=== PATIENT | male | born 1970 | race Caucasian/White ===

== ENCOUNTER 2017-02-05 10:03 | Inpatient (IN) | payer OTHER ==
[~2017-02-05] VITALS: Ht 172.7 cm; Wt 89.2 kg
[2017-02-05] VITALS (12 sets, daily range): BP systolic 108–142; BP diastolic 67–96; PULSE 58–68; RESP 17–20; TEMP 96.8–98.8; O2SAT 95–100
[~2017-02-05 10:03] MED LIST: MECL-62 PO; ZOFR4TAB3 SL
--- NOTE | 2017-02-05 10:28 | PD ---
HPI Chief Complaint: Chest Pain Time Seen by Provider: 10:15 Travel History International Travel<30 days: No Contact w/Intl Traveler<30days: No Traveled to known affect area: No History of Present Illness HPI 46-year-old male with history of HTN, HLD, CAD with previous stent to the LAD in 2013, tobacco abuse here with complaint of chest pain. Patient states that for the last now 5 days he has been having a left-sided pain in the chest that feels like "gas". He describes a burping sensation and pressure buildup. States that this feels very similar to when he had his WV in 2013 requiring stent placement. He has been trying [id number] antacids without much improvement of his symptoms prompting ER visit. No associated shortness of breath, palpitations. Pain is mild at this time. 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 Alonzo. [facility] Past Medical History Hx Anticoagulant Therapy: Yes (patient is on Plavix and aspirin) Anxiety: Yes Cardiovascular Problems: Yes (history of WV) High Cholesterol: Yes GERD: Yes Headaches: No Hypertension: Yes Immunizations Current: Yes Myocardial Infarction: Yes Past Surgical History Abdominal Surgery: Yes (R INGUINAL) Social History Alcohol Use: No Tobacco Use: Yes (2 PPD) Substance Use: No Allergies-Medications (Allergen,Severity, Reaction): Coded Allergies: No Known Allergies (Unverified , 02/05/17) Reported Meds & Prescriptions Reported Meds & Active Scripts Active Reported Aspirin 81 Mg Tabdr 81 Mg PO DAILY Plavix (Clopidogrel Bisulfate) 75 Mg Tab 75 Mg PO HS Citalopram (Citalopram Hydrobromide) 20 Mg Tab 20 Mg PO HS Zetia (Ezetimibe) 10 Mg Tab 10 Mg PO HS Review of Systems Except as stated in HPI: all other systems reviewed are Neg Physical Exam Narrative GENERAL: Middle-aged male in no acute distress SKIN: Focused skin assessment warm/dry. HEAD: Normocephalic. EYES: No scleral icterus. No injection or drainage. ENT: Mucous membranes pink and moist. NECK: Supple CARDIOVASCULAR: Regular rate and rhythm. No murmur appreciated. RESPIRATORY: No accessory muscle use. Clear to auscultation. Breath sounds equal bilaterally. GASTROINTESTINAL: Abdomen soft, non-tender, nondistended. Obese MUSCULOSKELETAL: No obvious deformities. No edema. NEUROLOGICAL: Awake and alert. Normal speech. PSYCHIATRIC: Appropriate mood and affect; insight and judgment normal. Data Data Last Documented VS Vital Signs Date Time Temp Pulse Resp B/P Pulse Ox O2 Delivery O2 Flow Rate FiO2 02/05/17 10:48 58 18 108/67 98 Room Air 02/05/17 10:05 98.8 Orders Electrocardiogram (02/05/17 ) Complete Blood Count With Diff (02/05/17 10:20) Comprehensive Metabolic Panel (02/05/17 10:20) Magnesium (Mg) (02/05/17 10:20) Prothrombin Time / Inr (Pt) (02/05/17 10:20) Act Partial Throm Time (Ptt) (02/05/17 10:20) Troponin I (02/05/17 10:20) Lipase (02/05/17 10:20) Chest, Single Ap (02/05/17 10:20) Ecg Monitoring (02/05/17 10:20) Iv Access Insert/Monitor (02/05/17 10:20) Oximetry (02/05/17 10:20) Aspirin Chew (Aspirin Chew) (02/05/17 10:30) Sodium Chloride 0.9% Flush (Ns Flush) (02/05/17 10:30) Nitroglycerin Sl (Nitrostat Sl) (02/05/17 10:30) Al-Mag Hy-Si 40-40-4 Mg/Ml Liq (Mag-Al P (02/05/17 10:30) Lidocaine 2% Viscous (Xylocaine 2% Visco (02/05/17 10:30) Heparin Infusion COLE.Q1H (02/05/17 11:45) Heparin Inj (Heparin Inj) (02/05/17 11:45) Heparin Inj (Heparin Inj) (02/05/17 17:45) Heparin Inj (Heparin Inj) (02/05/17 17:45) Heparin-D5w Inj (Heparin-D5w Inj) (02/05/17 11:45) Cbc No Diff, Includes Plts (02/08/17 06:00) Act Partial Throm Time (Ptt) (02/05/17 18:45) Occult Blood (Hemoccult) Stool (02/05/17 11:45) Labs Laboratory Tests Test 02/05/17 10:45 White Blood Count 7.9 TH/MM3 Red Blood Count 4.98 MIL/MM3 Hemoglobin 15.3 GM/DL Hematocrit 42.5 % Mean Corpuscular Volume 85.2 FL Mean Corpuscular Hemoglobin 30.7 PG Mean Corpuscular Hemoglobin 36.0 % Concent Red Cell Distribution Width 12.8 % Platelet Count 205 TH/MM3 Mean Platelet Volume 8.4 FL Neutrophils (%) (Auto) 66.7 % Lymphocytes (%) (Auto) 23.2 % Monocytes (%) (Auto) 7.2 % Eosinophils (%) (Auto) 2.4 % Basophils (%) (Auto) 0.5 % Neutrophils # (Auto) 5.3 TH/MM3 Lymphocytes # (Auto) 1.8 TH/MM3 Monocytes # (Auto) 0.6 TH/MM3 Eosinophils # (Auto) 0.2 TH/MM3 Basophils # (Auto) 0.0 TH/MM3 CBC Comment AUTO DIFF Prothrombin Time 10.5 SEC Prothromb Time International 1.0 RATIO Ratio Activated Partial 26.6 SEC Thromboplast Time Sodium Level 140 MEQ/L Potassium Level 4.0 MEQ/L Chloride Level 104 MEQ/L Carbon Dioxide Level 28.4 MEQ/L Anion Gap 8 MEQ/L Blood Urea Nitrogen 9 MG/DL Creatinine 0.90 MG/DL Estimat Glomerular Filtration 91 ML/MIN Rate Random Glucose 90 MG/DL Calcium Level 9.2 MG/DL Magnesium Level 1.9 MG/DL Total Bilirubin 0.9 MG/DL Aspartate Amino Transf 41 U/L (AST/SGOT) Alanine Aminotransferase 71 U/L (ALT/SGPT) Alkaline Phosphatase 64 U/L Troponin I 1.82 NG/ML Total Protein 6.7 GM/DL Albumin 3.9 GM/DL Lipase 150 U/L [facility] Medical Decision Making Medical Screen Exam Complete: Yes Emergency Medical Condition: Yes Medical Record Reviewed: Yes Differential Diagnosis 46-year-old male with history of HTN, HLD, CAD with previous stent to the LAD in 2013, tobacco abuse here with complaint of chest pain. Differential includes ACS, GERD, peptic ulcer disease, pancreatitis, hepatobiliary pathology , atypical chest pain and less likely PE or dissection. Narrative Course Patient placed on monitor, IV established and blood obtained. A twelve-lead EKG shows sinus rhythm with Q waves in the inferior leads 3, aVF and biphasic T- wave in lead 3. This is similar to patient's previous EKG. No acute ST abnormalities, normal intervals. Patient was given aspirin, nitroglycerin and GI cocktail. Portable chest x-ray obtained that by my read shows no acute abnormalities. CBC, CMP, lipase, magnesium, coags, troponin notable for troponin 1.82. Patient states that as soon as he got the nitroglycerin his symptoms improved. He is pain-free at this time. He was given nitro paste, beta joanne, heparin and will be admitted for cardiac management. Cardiology consulted while in ED. Critical Care Narrative Aggregate critical care time was 45 minutes. Time to perform other separately billable procedures was not included in the critical care time. My time did not include minutes spent treating any other patients simultaneously or on activities that did not directly contribute to the patient's treatment. The services I provided to this patient were to treat and/or prevent clinically significant deterioration that could result in: Cardiopulmonary decompensation, , disability I provided critical care services requiring my management, as noted below: Chart data review, documentation time, medication orders and management, vital sign assessments/reviewing monitor data, ordering and reviewing lab tests, ordering and interpreting/reviewing x-rays and diagnostic studies, care of the patient and discussion of the patient with the admitting physicians.are Diagnosis Primary Impression: Non-ST elevation WV (NSTEMI) Additional Impression: Chest pain Qualified Code: I20.9 - Chest pain due to myocardial ischemia, unspecified ischemic chest pain type Admitting Information Admitting Physician Requests: it Chelo Regalado MD Feb 05, 2017 10:28
[2017-02-05] MEDS: NITROGLYCERIN 0.4 MG SL 25 TABS/BTL SL SCH ×4 (10:29→10:40)
[2017-02-05] MEDS ORDERED: ALUMINUM/MAGNESIUM/SIMETH 30 ML CUP PO ONE (10:30)
[2017-02-05] MEDS ORDERED: LIDOCAINE VISCOUS 2% SOLN 15 ML UDC PO ONE (10:30)
[2017-02-05] MEDS ORDERED: ASPIRIN 81 MG CHEW TAB PO ONE (10:30)
[2017-02-05] MEDS ORDERED: SODIUM CHLORIDE 0.9% FLUSH 10 ML FLUSH IVF PRN (10:30)
[2017-02-05] MEDS ORDERED: CITA20TA4 PO (10:42)
[2017-02-05] MEDS ORDERED: ZETI10TA5 PO (10:42)
[2017-02-05] MEDS ORDERED: PLAV75TA29 PO (10:45)
[2017-02-05] MEDS ORDERED: ASPI1TAB69 PO (10:45)
[2017-02-05 11:00] LABS: AUTOMATED NEUTROPHIL # 5.3 TH/MM3 (1.8-7.7); BASOPHIL % 0.5 % (0.0-2.0); EOSINOPHIL # 0.2 TH/MM3 (0-0.4); EOSINOPHIL % 2.4 % (0.0-4.0); HEMATOCRIT 42.5 % (39.0-51.0); LYMPH % 23.2 % (9.0-44.0); LYMPHOCYTE # 1.8 TH/MM3 (1.0-4.8); MEAN CELL VOLUME 85.2 FL (80.0-100.0); MEAN CORPUSCULAR HEMOGLOBIN 30.7 PG (27.0-34.0); MONO % 7.2 % (0.0-8.0); NEUT % 66.7 % (16.0-70.0); PLATELET COUNT 205 TH/MM3 (150-450); RED BLOOD COUNT 4.98 MIL/MM3 (4.50-5.90); RED CELL DISTRIBUTION WIDTH 12.8 % (11.6-17.2); WHITE BLOOD COUNT 7.9 TH/MM3 (4.0-11.0)
[2017-02-05 11:03] LABS: HEMO FLAGS AUTO DIFF
--- NOTE | 2017-02-05 11:03 | RADRPT ---
EXAM DATE/TIME: 02/05/2017 10:46 [facility] COMPARISON: CHEST SINGLE AP, September 22, 2013, 16:31. INDICATIONS : Chest pain at arrival MEDICAL HISTORY : Myocardial infarction. SURGICAL HISTORY : Coronary artery stent. ENCOUNTER: Initial ACUITY: 1 day PAIN SCORE: 0/10 LOCATION: Bilateral chest FINDINGS: A single view of the chest demonstrates the lungs to be symmetrically aerated without evidence of mas s, infiltrate or effusion. The cardiomediastinal contours are unremarkable. Osseous structures are intact. CONCLUSION: Normal examination. Sujit Aguiar MD on February 05, 2017 at 11:02 Board Certified Radiologist. This report was verified electronically.
[2017-02-05 11:15] LABS: ALT (GPT) 71 U/L (12-78); ANION GAP 8 MEQ/L (5-15); AST (GOT) 41 U/L (15-37); BICARBONATE 28.4 MEQ/L (21.0-32.0); BLOOD UREA NITROGEN 9 MG/DL (7-18); CHLORIDE 104 MEQ/L (98-107); GLOMERULAR FILTRATION RATE 91 ML/MIN (>89); MAGNESIUM 1.9 MG/DL (1.5-2.5); SODIUM (NA) 140 MEQ/L (136-145)
[2017-02-05 11:19] LABS: ALKALINE PHOSPHATASE 64 U/L (45-117); APTT (PATIENT) 26.6 SEC (24.3-30.1); PROTHROMBIN TIME - PATIENT 10.5 SEC (9.8-11.6); TOTAL BILIRUBIN ADULT 0.9 MG/DL (0.2-1.0)
[2017-02-05] MEDS ORDERED: HEPARIN-D5W INJ 250 ML IV SCH (11:45)
[2017-02-05] MEDS ORDERED: HEPARIN SODIUM - IV 10,000 UNITS/10 ML VIAL IV ONE (11:45)
[2017-02-05] MEDS ORDERED: NITROGLYCERIN 2% OINT 1 GM PACKET TOPICAL ONE (12:00)
[2017-02-05] MEDS ORDERED: METOPROLOL TARTRATE 25 MG TAB PO ONE (12:00)
--- NOTE | 2017-02-05 12:25 | EKG ---
Date Performed: 02/05/2017 Time Performed: 10:15:07 PTAGE: 46 years EKG: Sinus rhythm INFERIOR MYOCARDIAL INFARCTION ABNORMAL ECG PREVIOUS TRACING : 10/13/2016 00.09 DOCTOR: Jeffy Guallpa Interpretating Date/Time 02/05/2017 12:23:54
[2017-02-05 12:28] LABS: PLATELET ESTIMATE SMEAR NORMAL (NORMAL); PLATELET MORPHOLOGY NORMAL (NORMAL); SCAN/DIFF AUTO DIFF CONFIRMED
[2017-02-05] MEDS ORDERED: NALOXONE HCL 0.4 MG/ML AMP IV PRN (12:45)
[2017-02-05] MEDS ORDERED: SODIUM CHLORIDE 0.9% FLUSH 10 ML FLUSH IV FLUSH PRN (12:45)
[2017-02-05] MEDS ORDERED: ONDANSETRON HCL 4 MG/2 ML VIAL IVP PRN (12:45)
[2017-02-05] MEDS: PANTOPRAZOLE SOD 40 MG DELAYED RELEASE TAB PO SCH (13:28)
--- NOTE | 2017-02-05 14:00 | MH ---
cc: LINSEY BARRON DATE OF ADMISSION: 02/05/2017 DATE OF : 1970 CHIEF COMPLAINT Chest pain. HISTORY OF PRESENT ILLNESS This is a pleasant 46-year-old white male who has a history of coronary artery disease and previous stents in 2012. The patient was working this past week and weekend and under his usual events when he started noticing a epigastric type pressure sensation in his mid chest. He describes it as a gas or bloating sensation, no radiation, the patient denies any shortness of breath, no nausea, no vomiting, no diarrhea. No constipation. The patient did work long hours this past weekend and states that when he wound burp the pain would ease for a period of time. He actually had to stop driving at one particular event because the chest pain became very intense. The patient is a chronic cigarette user and is currently on aspirin and Plavix. The patient has been taking some over the counter antacids to assist with his pain but has not had much relief. The patient is alert, oriented, and his mother is at his side. He is a good historian. PAST MEDICAL HISTORY: 1. Includes; Anxiety disorder. 2. Gastroesophageal reflux disease. 3. Hyperlipidemia. 4. Hypertension. 5. Previous myocardial infarction. PAST SURGICAL HISTORY: 1. Cardiac stents 2. Right inguinal hernia repair. ALLERGIES No known MEDICATIONS: medications reported; 1. Aspirin 2. Plavix 3. Citalopram 4. Zetia. SOCIAL HISTORY He is , lives alone, approximately two pack a day smoker. He has quit a couple of times for approximately 6 months but for the most part has been smoking since his teenage years. No alcohol abuse, no illicit drug abuse. FAMILY HISTORY Positive for hypertension, diabetes, stroke and heart disease. REVIEW OF SYSTEMS Review of systems of 12 point review was done positives noted are his chest pain, epigastric pain. Bloating, gas with bloating. positive for cigarette abuse, other systems are negative or unremarkable. PHYSICAL EXAMINATION: VITAL SIGNS: Temperature is 98, pulse 58, respirations 17-28, blood pressure 113/70 when he first came in the ER blood pressure was 142/96. O2 sat was 100. The patient is currently on room air. IN GENERAL: Well-nourished white male looks to be his stated age resting on a stretcher. Eating some lunch, he is alert and oriented. HEAD, EYES, EARS, NOSE, AND THROAT: Atraumatic, normocephalic. Pupils equal, round, reactive to light and accommodation, the mucous membranes were moist. He has no scleral icterus. CARDIOVASCULAR SYSTEM: S1-S2, no murmurs, rubs gallops heard. There is n edema. His pulses were intact. RESPIRATORY: Essentially clear anteriorly and posterior with no wheezes, rales or rhonchi. He does have some generalized diminished breath sounds throughout. ABDOMEN: The abdomen round, soft, nontender, nondistended. Active bowel sounds in all four quads. MUSCULOSKELETAL: He moves all extremities with purpose. He has equal hand chart calculator and he can overcome resistance in his lower extremities. He has no cyanosis. NEUROLOGIC: Neurologically he is alert, oriented and good historian. Speech is clear. SKIN: [place], warm and dry. Turgor is. DIAGNOSTIC DATA Sodium 140, potassium 4, chloride 104, carbon dioxide 28.4, anion gap 8, blood urea nitrogen 9, creatinine 0.9. Random glucose 90, calcium 9.2. Magnesium 1.9, bilirubin 0.9, aspartate aminotransferase 41, ALT 74 and alkaline phosphatase 64, troponin 1.82, total protein 6.7, albumin 3.9, lipase 150. WBC count 7.9, RBC 4.18 goes and 15.4, hematocrit 42.5, platelet count 205. His differential is normal. PT INR is 1. RADIOLOGIC: Imaging chest x-ray normal examination. ASSESSMENT AND PLAN: 1. Chest pain, non-STEMI. 2. Vertigo without syncope. 3. Tobacco abuse. 4. Gastroesophageal reflux disease. 5. Anxiety disorder. PLAN: Our plan is to admit inpatient status; the patient arrived at the emergency room received an EKG and lab work, was placed on telemetry, was given IV access and monitored for he is acute cardiac event. The patient was given Heparin IV and was placed on a heparin drip. We will maintain that. The patient was given Metoprolol 12.5 mg p.o. one time. Nitroglycerin was placed on his chest. Cardiology was consulted for their expert opinion, he has seen cardiology and their plan is to do a cardiac catheterization some time in the morning. The patient will be on heart healthy will monitor for a knee further pain, this has been explained to the patient and his mother and that he needs to call for any acute chest pain. The patient was educated on no smoking. The patient is full code, full aggressive care. We will follow. We will also place the patient on peptic ulcer disease prophylaxis with Protonix and reconcile any medications needed for now. Saray Barron MD DICTATED BY: NOEMI Jacobsen /1:14 PM /1:40 PM
[2017-02-05] MEDS ORDERED: AMOX500C PO (15:59)
[2017-02-05] MEDS ORDERED: ALPR0.5T3 PO (15:59)
[2017-02-05] MEDS ORDERED: CETI10 PO (15:59)
[2017-02-05] MEDS ORDERED: LISI10TA3 PO (15:59)
[2017-02-05] MEDS ORDERED: NITROGLYCERIN 0.4 MG SL 25 TABS/BTL SL PRN (17:15)
[2017-02-05] MEDS ORDERED: HEPARIN SODIUM - IV 10,000 UNITS/10 ML VIAL IV PRN ×2 (17:45)
[2017-02-05 18:40] LABS: APTT (PATIENT) 30.7 SEC (24.3-30.1)
[2017-02-05] MEDS ORDERED: IBUPROFEN 800 MG TAB PO PRN (18:45)
[2017-02-05] MEDS: SODIUM CHLORIDE 0.9% FLUSH 10 ML FLUSH IV FLUSH SCH (20:50)
[2017-02-05] MEDS: CITALOPRAM HYDROBROMIDE 20 MG TAB PO SCH (20:51)
[2017-02-05] MEDS: EZETIMIBE 10 MG TAB PO SCH (20:51)
[2017-02-06] VITALS (17 sets, daily range): BP systolic 123–149; BP diastolic 68–97; PULSE 55–75; RESP 18–20; TEMP 98–98.7; O2SAT 95–99
[2017-02-06 07:14] LABS: APTT (PATIENT) 35.6 SEC (24.3-30.1)
[2017-02-06 07:20] LABS: AUTOMATED NEUTROPHIL # 3.8 TH/MM3 (1.8-7.7); BASOPHIL % 0.6 % (0.0-2.0); EOSINOPHIL # 0.2 TH/MM3 (0-0.4); EOSINOPHIL % 3.4 % (0.0-4.0); HEMATOCRIT 42.6 % (39.0-51.0); HEMO FLAGS DIFF FINAL; LYMPH % 33.6 % (9.0-44.0); LYMPHOCYTE # 2.3 TH/MM3 (1.0-4.8); MEAN CELL VOLUME 86.1 FL (80.0-100.0); MEAN CORPUSCULAR HEMOGLOBIN 29.6 PG (27.0-34.0); MEAN CORPUSCULAR HGB CONC 34.4 % (32.0-36.0); MONO % 8.2 % (0.0-8.0); NEUT % 54.2 % (16.0-70.0); PLATELET COUNT 198 TH/MM3 (150-450); RED BLOOD COUNT 4.95 MIL/MM3 (4.50-5.90); RED CELL DISTRIBUTION WIDTH 12.7 % (11.6-17.2); WHITE BLOOD COUNT 6.9 TH/MM3 (4.0-11.0)
[2017-02-06 07:37] LABS: BICARBONATE 29.5 MEQ/L (21.0-32.0); POTASSIUM 3.9 MEQ/L (3.5-5.1)
[2017-02-06] MEDS: ASPIRIN EC 81 MG TABEC PO SCH (09:00)
[2017-02-06] MEDS: SODIUM CHLORIDE 0.9% FLUSH 10 ML FLUSH IV FLUSH SCH ×2 (09:00→20:29)
--- NOTE | 2017-02-06 09:10 | MB ---
cc: EDMUNDO DAVIS M.D. DATE OF CONSULTATION 02/06/2017 DATE OF ADMISSION TO THE EMERGENCY ROOM 02/05/[address] Davis PHYSICIAN REQUESTING CONSULTATION ER physician CHIEF COMPLAINT chest discomfort IMPRESSION 1. [id number] UT 2. Atherosclerotic heart disease status post previous myocardial infarction with stent in the mid LAD. 3. History of hypertension. 4. History of hyperlipidemia. 5. Continued cigarette smoking. RECOMMENDATIONS Cardiac catheterization to be done by Dr. Duarte. SUBJECTIVE Mr. Christopher is a 46-year-old male with atherosclerotic heart disease status post stenting in the LAD by Dr. Byrd in the past. He presented with a non-ST segment elevation UT at that time. He presented to the emergency room yesterday with a several-day history five or six days of burping and substernal chest pressure. He says it was the same type of discomfort he had prior to his myocardial infarction. Electrocardiogram showed nonspecific findings and his troponin was elevated. He was given nitroglycerin with relief of the discomfort. PAST MEDICAL HISTORY Remarkable for: 1. Hypertension 2. Hyperlipidemia 3. History of elevated liver enzymes. PAST SURGICAL HISTORY He has no known surgical procedures. SOCIAL HISTORY He does continue to smoke cigarettes. MEDICATIONS His medicines were: 1. Lisinopril 10 mg daily 2. Zetia 10 mg daily 3. Xanax 0.5 mg two tablets every night at bedtime 4. Plavix 75 mg a day 5. Metoprolol 25 mg daily 6. Citalopram one tablet 20 mg at bedtime 7. Omeprazole 20 mg daily ALLERGIES TO MEDICATIONS No medication allergies. SOCIAL HISTORY He continues to smoke. Does not drink significant amounts of alcohol. He has 60 pack years of cigarette smoking. Occasional alcohol use. REVIEW OF SYSTEMS GI: No hematemesis, melena or bright red blood per rectum. RESPIRATORY: No bronchitis, pleurisy or pneumonia. NEUROLOGIC: No history of stroke, epilepsy, or TIA. EXAMINATION Blood pressure 130/80, heart rate 78. HEAD, EYES, EARS, NOSE, AND THROAT: Pupils are equal. Sclerae clear. NECK: Neck veins are not distended. LUNGS: Clear to auscultation and percussion. CARDIAC: No murmurs or gallops. ABDOMEN: Soft. EXTREMITIES: Right handed, fluent speech, moves all extremities. Gait is intact. He had an exercise treadmill test done in May of last year which was negative and obtained only 80% of his maximal heart rate. IMPRESSION 1. Non ST segment elevation [place]. 2. History of hypertension. 3. History of stenting in the mid LAD. 4. History of hyperlipidemia. RECOMMENDATIONS Dr. Duarte will do a cardiac catheterization later today. MD IBETH Cunha/GUY /8:38 AM /8:54 AM
--- NOTE | 2017-02-06 09:47 | HHI.PR ---
Subjective Remarks Alert, talkative Denies any chest pain Denies any shortness of breath Mother in room Afebrile Awaiting heart catheter today (Norma Dyer) Objective Objective Results - Vital Signs Date Time Temp Pulse Resp B/P Pulse Ox O2 Delivery O2 Flow Rate FiO2 02/06/17 08:46 98.0 55 20 142/90 97 02/06/17 03:50 56 18 127/78 95 02/06/17 00:40 63 02/05/17 23:09 97.8 63 18 126/71 97 02/05/17 21:51 14 02/05/17 20:02 95 02/05/17 19:59 97.8 63 18 110/69 95 02/05/17 16:50 96.8 67 18 120/74 97 02/05/17 16:25 68 02/05/17 14:00 97.8 67 18 120/76 98 Room Air 02/05/17 13:19 98 21 02/05/17 12:19 98.0 58 17 113/70 98 Room Air 02/05/17 10:48 58 18 108/67 98 Room Air 02/05/17 10:34 17 02/05/17 10:22 18 98 Room Air 02/05/17 10:15 86 17 98 Room Air 02/05/17 10:05 98.8 62 20 142/96 100 Room Air I/O 02/05/17 02/05/17 02/05/17 02/06/17 02/06/17 02/06/17 07:00 15:00 23:00 07:00 15:00 23:00 Intake Total 200 ml Output Total 500 ml Balance -300 ml Intake Oral 200 ml Output Urine Total 500 ml # Voids 1 # Bowel Movements 0 (Norma Dyer) Result Diagram: 02/06/17 0634 02/06/17 0634 ROS General: Other (10 point ROS done positives noted for chest pain in the last 24 hours, mild dizziness which is resolved. Other systems negative or unremarkable) Cardiac: Chest Pain (controlled for now but has had some treatment for his chest pain in the past 24 hours) Pulmonary: SOB (none) Neuro/MS: Lightheaded (initially but none now) (Norma Dyer) Physical Exam Physical Exam PHYSICAL EXAMINATION GENERAL: This is a well-developed, well-nourished male who appears to be in no acute distress. He is alert and awake, currently nothing by mouth awaiting heart catheter. HEAD: Normocephalic without any lesion or mass noted. Facial features appear symmetric. OROPHARYNGEAL: Oropharynx without erythema or edema. NECK: Supple. No nuchal rigidity or lymphadenopathy. Trachea midline without deviation. CARDIAC: Regular rhythm, regular rate, S1 and S2 are heard. LUNGS: Clear to auscultation bilaterally. No rhonchi or wheezing noted ABDOMEN: Soft, nontender, no organomegaly or masses. Bowel sounds are heard in all four quadrants. No rebound. No guarding. EXTREMITIES: no edema. Pulses equal bilateral. NEUROLOGICAL: Patient mood and affect appropriate. No focal deficit SKIN:Warm and moist Objective Remarks I'm feeling better this morning. I know I need to quit smoking (Norma Dyer) A/P Assessment and Plan 1. Chest pain, non-STEMI. Cardiac catheter to be done today. Cardiology consult done appreciate their input. Patient is still currently smoking, educated multiple times on the need to quit. States he is going to do it this time. No current chest pain this a.m. but has been treated in the past 24 hours. Maintained on heparin IV drip 2. Vertigo without syncope. None since admission. This was probably secondary to his chest pain and possible small [place]. 3. Tobacco abuse. Educated on quitting. See above 4. Gastroesophageal reflux disease. Pepcid, no acute complaints of reflux 5. Anxiety disorder. Current medical situation, monitor Vital signs reviewed, currently no no acute issues, normal ranges Labs reviewed, stable for now, heparin drip DVT prophylaxis PUD prophylaxis Will follow post catheter and results for patient's course of treatment. Discussed With: Nurse, Family (patient and mom), Other (Dr. Tran, seen on her behalf) (Norma Dyer) Assessment and Plan patient seen and examined complaining about being hungry no chest pain\ Cardiac cath later this afternoon discussed with patient discussed with nursing staff discussed with Norma FRANKLIN (Saray Tran MD) Norma Dyer Feb 06, 2017 09:47 Saray Tran MD Feb 06, 2017 10:09
--- NOTE | 2017-02-06 10:47 | EKG ---
Date Performed: 02/05/2017 Time Performed: 17:15:38 PTAGE: 46 years EKG: Sinus rhythm INFERIOR MYOCARDIAL INFARCTION ABNORMAL ECG PREVIOUS TRACING : 02/05/2017 10.15 DOCTOR: Gary Byrd Interpretating Date/Time 02/06/2017 10:46:06
[2017-02-06] MEDS: SODIUM CHLOR 0.9% 1000 ML INJ 1,000 ML IV SCH (11:27)
[2017-02-06] MEDS ORDERED: ASPIRIN 325 MG TAB PO SCH (11:30)
[2017-02-06] MEDS: AMOXICILLIN (TRIHYDRATE) 500 MG CAP PO SCH ×3 (12:04→18:38)
[2017-02-06] MEDS: PANTOPRAZOLE SOD 40 MG DELAYED RELEASE TAB PO SCH (12:05)
[2017-02-06] MEDS: CETIRIZINE HCL 10 MG TAB PO SCH (12:05)
[2017-02-06] MEDS ORDERED: IOHEXOL 350 MG/ML 100 ML BTL (for Cath Lab) OTHER ONE (12:19)
[2017-02-06] MEDS ORDERED: HEPARIN-NS/PF INJ 500 ML ONE (12:24)
[2017-02-06] MEDS ORDERED: MIDAZOLAM HCL 2 MG/2 ML VIAL ONE ×2 (12:24→12:54)
[2017-02-06] MEDS ORDERED: HEPARIN SODIUM - IV 10,000 UNITS/10 ML VIAL ONE (13:11)
[2017-02-06] MEDS ORDERED: LIDOCAINE/D5W INJ 500 ML ONE (13:13)
[2017-02-06] MEDS ORDERED: DOPamine INJ PREMIX 500 ML ONE (13:15)
[2017-02-06] MEDS ORDERED: ASPIRIN 81 MG CHEW TAB ONE (13:37)
[2017-02-06] MEDS ORDERED: CLOPIDOGREL 300 MG TAB ONE (13:37)
[2017-02-06] MEDS ORDERED: ATROPINE SULFATE 1 MG/10 ML SYRINGE ONE (13:57)
[2017-02-06] MEDS: ACETAMINOPHEN 325 MG TAB PO PRN (20:28)
[2017-02-06] MEDS: CITALOPRAM HYDROBROMIDE 20 MG TAB PO SCH (20:28)
[2017-02-06] MEDS: EZETIMIBE 10 MG TAB PO SCH (20:29)
[2017-02-06 20:31] LABS: AUTOMATED NEUTROPHIL # 6.1 TH/MM3 (1.8-7.7); BASOPHIL # 0.1 TH/MM3 (0-0.2); BASOPHIL % 0.9 % (0.0-2.0); EOSINOPHIL # 0.2 TH/MM3 (0-0.4); EOSINOPHIL % 2.6 % (0.0-4.0); HEMATOCRIT 41.7 % (39.0-51.0); HEMO FLAGS DIFF FINAL; LYMPH % 24.4 % (9.0-44.0); LYMPHOCYTE # 2.3 TH/MM3 (1.0-4.8); MEAN CELL VOLUME 85.8 FL (80.0-100.0); MEAN CORPUSCULAR HEMOGLOBIN 30.6 PG (27.0-34.0); MEAN CORPUSCULAR HGB CONC 35.6 % (32.0-36.0); MONO % 8.4 % (0.0-8.0); NEUT % 63.7 % (16.0-70.0); PLATELET COUNT 226 TH/MM3 (150-450); RED BLOOD COUNT 4.86 MIL/MM3 (4.50-5.90); RED CELL DISTRIBUTION WIDTH 12.7 % (11.6-17.2); WHITE BLOOD COUNT 9.5 TH/MM3 (4.0-11.0)
[2017-02-06 20:46] LABS: APTT (PATIENT) 24.9 SEC (24.3-30.1); INTERNATIONAL NORMALIZED RATIO 0.9 RATIO; PROTHROMBIN TIME - PATIENT 9.6 SEC (9.8-11.6)
[2017-02-06 21:58] LABS: BICARBONATE 25.7 MEQ/L (21.0-32.0); POTASSIUM 3.8 MEQ/L (3.5-5.1)
[2017-02-07] VITALS (25 sets, daily range): BP systolic 133–153; BP diastolic 83–98; PULSE 54–78; RESP 18–20; TEMP 98.3–99.2; O2SAT 93–99
[2017-02-07] MEDS: ACETAMINOPHEN 325 MG TAB PO PRN (04:38)
--- NOTE | 2017-02-07 09:22 | HHI.PR ---
Subjective Subjective Remarks No chest pain Or shortness of breath No dizziness Has been eating well Asking when he is going home Review of Systems Constitutional Constitutional Remarks 12 point review of systems completed, negative except as noted above Vitals/Results Intake & Output 02/06/17 02/06/17 02/07/17 15:00 23:00 07:00 Intake Total 1450 ml 720 ml Output Total 550 ml 1400 ml Balance 900 ml -680 ml Intake Oral 950 ml 720 ml IV Total 500 ml Output Urine Total 550 ml 1400 ml Vital Signs Vital Signs Date Time Temp Pulse Resp B/P Pulse Ox O2 Delivery O2 Flow Rate FiO2 02/07/17 08:00 68 02/07/17 07:00 99.2 57 20 153/97 95 02/07/17 07:00 60 02/07/17 05:00 54 02/07/17 04:00 54 02/07/17 03:30 98.3 60 18 139/91 98 02/07/17 03:00 54 02/07/17 02:00 54 02/07/17 01:00 56 02/07/17 00:00 58 02/06/17 23:08 98.0 72 18 126/70 98 02/06/17 23:01 96 21 02/06/17 23:00 66 02/06/17 22:00 66 02/06/17 21:00 70 02/06/17 20:00 68 02/06/17 19:20 98.0 70 18 123/68 99 02/06/17 19:00 70 02/06/17 18:07 66 02/06/17 17:09 62 02/06/17 16:17 75 02/06/17 15:28 98.1 65 18 142/94 97 02/06/17 15:11 65 02/06/17 11:49 98.7 69 20 149/97 96 CBC/BMP: 02/06/17201402/06/172014 Lab Results Laboratory Tests Test 02/06/17 20:15 White Blood Count 9.5 TH/MM3 Red Blood Count 4.86 MIL/MM3 Hemoglobin 14.9 GM/DL Hematocrit 41.7 % Mean Corpuscular Volume 85.8 FL Mean Corpuscular Hemoglobin 30.6 PG Mean Corpuscular Hemoglobin 35.6 % Concent Red Cell Distribution Width 12.7 % Platelet Count 226 TH/MM3 Mean Platelet Volume 8.1 FL Neutrophils (%) (Auto) 63.7 % Lymphocytes (%) (Auto) 24.4 % Monocytes (%) (Auto) 8.4 % Eosinophils (%) (Auto) 2.6 % Basophils (%) (Auto) 0.9 % Neutrophils # (Auto) 6.1 TH/MM3 Lymphocytes # (Auto) 2.3 TH/MM3 Monocytes # (Auto) 0.8 TH/MM3 Eosinophils # (Auto) 0.2 TH/MM3 Basophils # (Auto) 0.1 TH/MM3 CBC Comment DIFF FINAL Differential Comment Prothrombin Time 9.6 SEC Prothromb Time International 0.9 RATIO Ratio Activated Partial 24.9 SEC Thromboplast Time Sodium Level 139 MEQ/L Potassium Level 3.8 MEQ/L Chloride Level 104 MEQ/L Carbon Dioxide Level 25.7 MEQ/L Anion Gap 9 MEQ/L Blood Urea Nitrogen 9 MG/DL Creatinine 0.92 MG/DL Estimat Glomerular Filtration 89 ML/MIN Rate Random Glucose 171 MG/DL Calcium Level 8.2 MG/DL Physical Exam General General Appearance: Well Developed, Well Nourished, No Acute Distress, Comfortable Eyes Eye Exam: Pupils Equal, Pupils Reactive Ears & Nose Ears & Nose Exam: Nasal Mucosa [place] Throat Throat Exam: Oral Mucosa [place] & Moist Neck Neck Exam: Neck Supple, Trachea Midline Pulmonary Resp Exam: Clear Bilaterally, No Distress Cardiology CV Exam: Regular, Good Perfusion Gastrointestinal/Abdomen GI Exam: Soft, Non-Tender, Bowel Sounds Present, Non-Distended Musculoskeletal MS Exam: Joints Intact Integumentary Skin Exam: Warm, Dry Extremeties Extremities Exam: No Edema, Pedal Pulses Palpable Neurologic Neuro Exam: Alert, Awake, Oriented, Speech Clear, Moving All Extremities, No Focal Deficits Psychiatric Psych Exam: Appropriate Responses VTE Prophylaxis VTE Prophylaxis Device: SCDs Assessment/Plan Problem List: (1) Non-ST elevation [place] (NSTEMI) (2) Vertigo (3) Chest pain (4) CAD (coronary artery disease) (5) Hyperlipidemia (6) HTN (hypertension) (7) Hx of myocardial infarction (8) Tobacco abuse Assessment/Plan 46-year-old male with past medical history CAD, hypertension, prior [place]. Presented to the emergency room with chest pain and syncopal symptoms. Found positive for non-STEMI 02/06-Status post cardiac catheterization-found with 99% occlusion to RCA status post stent. Was defibrillated during procedure -Resume Plavix Continue with aspirin Hold off on starting beta blockers, heart rate 50s -Continue statin Recent dental workup, on antibiotics Continue with amoxicillin Tobacco abuse Tobacco abuse counseling, patient agreeable with stopping this time Hypertension Continue home medications Hyperlipidemia -Continue with home medications Vertigo, resolved -Continue to monitor Possible discharge today if cleared by cardiology D/W RN D/W Dr. Baumann D/W pt This patient was seen by myself and Dr. Baumann, this note is written on his behalf Problem Qualifiers (1) Chest pain: Qualified Code: I20.9 - Chest pain due to myocardial ischemia, unspecified ischemic chest pain type (2) CAD (coronary artery disease): Qualified Code: I25.118 - Coronary artery disease of [place] artery of [place] heart with stable angina pectoris (3) Hyperlipidemia: Qualified Code: E78.5 - Hyperlipidemia, unspecified hyperlipidemia type (4) HTN (hypertension): Qualified Code: I10 - Essential hypertension Angela Hernandez Feb 07, 2017 09:22
--- NOTE | 2017-02-07 09:23 | HHI.DCPOC ---
Discharge Care Plan Diagnosis: (1) Chest pain (2) Non-ST elevation ID (NSTEMI) Your Health Problems Are: Chest Pain Shortness of Breath Goals to Promote Your Health * To prevent worsening of your condition and complications * To maintain your health at the optimal level Directions to Meet Your Goals Take your medications as prescribed Follow your dietary instruction Follow activity as directed Keep your appointments as scheduled Take your immunizations and boosters as scheduled If your symptoms worsen call your PCP, if no PCP go to Urgent Care Center or Emergency Room Smoking is Dangerous to Your Health. Avoid second hand smoke Call the 24-hour hour crisis hotline for domestic abuse at Angela Hernandez. [facility] Feb 07, 2017 09:23
[2017-02-07] MEDS ORDERED: NITR1SUB3 SL (09:24)
[2017-02-07] MEDS: PANTOPRAZOLE SOD 40 MG DELAYED RELEASE TAB PO SCH (09:29)
[2017-02-07] MEDS: SODIUM CHLORIDE 0.9% FLUSH 10 ML FLUSH IV FLUSH SCH ×2 (09:29→20:01)
[2017-02-07] MEDS: CETIRIZINE HCL 10 MG TAB PO SCH (09:29)
[2017-02-07] MEDS: ASPIRIN EC 81 MG TABEC PO SCH (09:29)
[2017-02-07] MEDS: AMOXICILLIN (TRIHYDRATE) 500 MG CAP PO SCH ×3 (09:50→17:40)
[2017-02-07] MEDS: LISINOPRIL 10 MG TAB PO SCH (10:22)
[2017-02-07] MEDS: SODIUM CHLOR 0.9% 1000 ML INJ 1,000 ML IV SCH (11:27)
--- NOTE | 2017-02-07 11:28 | MA ---
cc: EDMUNDO DAVIS M.D., HUMAYUN A. M.D. MALIK, AMNA A. MD GIERBOLINI, JOSE R. M.D. DATE 02/06/2017 PROCEDURE PERFORMED 1. Intracoronary stent placement to the right coronary 2. Bilateral coronaries 3. No LV gram 4. Non-STEMI 5. Total occlusion of the right coronary. 6. Sedation given 7. Defibrillation shock 360 8. Ventricular Fibrillation 9. Angio-Seal placement BRIEF HISTORY This is a 46-year-old male who presents with a history of acute myocardial infarction in 2012 with a stent to the LAD with some mild disease of the right coronary who presents now with acute chest pain and positive troponins. CONSENT A full informed consent was obtained prior to the procedure. The risks of , bleeding, myocardial infarction, perforation, aspiration, foreseen and foreseen complications were reviewed. The patient fully appeared to understand the risks. PROCEDURAL STATEMENT The patient was draped and prepped in the usual manner. The right femoral artery was entered using a micropuncture technique. Via the 4-Algerian sheath, left and right coronary catheters were used to intubate the left and right coronaries. LV gram was not performed in the interest of dye sparing. At this point, it was noted the patient fibrillated and he received a 360 joules defibrillation shock which converted him to sr , He had brief CPR and chest compressions. He was started on lidocaine and dopamine. Further angiogram showed total occlusion of the right coronary. The 4-Algerian sheath was exchanged for a 6-Algerian sheath. A 6-[place]gerian ART guide catheter was used to intubate the right coronary. A 0.014 [place] wire was used to cross the total occlusion and placed distally in the right coronary. A 2.5 x 12 mm balloon was passed across the lesion and deployed at nominal pressures. Check angiograms were performed. The patient also received resuscitation with fluid resuscitation normal saline wide open, was put on lidocaine to prevent further episodes of ventricular fibrillation/tachycardia and was also started on dopamine because of a low heart rate and low blood pressure and to avoid the Bezold Jarisch reflex. Following this, a 3.0 x 20 mm stent was passed across the lesion and deployed at nominal pressures. The lesion was postdilated with a larger third 3.25 balloon to 18 atmospheres for 30 seconds. Check angiograms were performed. Prior to this, intracoronary shortness had been also used. Multiple angiographic views were carried out at the end of procedure. Right femoral angiogram was performed and an Angio-Seal was placed in the usual manner. FINDINGS HEMODYNAMICS The aortic pressure was 110/70 with a mean aortic pressure of 88. The left ventricle pressure was 107 with a left ventricle end-diastolic pressure of 83. LEFT VENTRICULOGRAM Angiogram was not performed, although the LV was entered. CORONARIES The left main was free of significant disease. The left anterior descending artery was a large vessel. There was evidence of a previously placed stent across the LAD with evidence of moderate in-stent restenosis. The first diagonal branch was a large and "jailed", but free of significant disease. The proximal LAD had a 25-40% stenosis. The was a small intermediate ramus vessel. There is circumflex vessel was a large vessel with a totally occluded first obtuse marginal branch that showed evidence of collateral filling via the fourth obtuse marginal branch. There was evidence of mild plaquing throughout this circumflex vessel. The right coronary artery was a large dominant vessel with a large posterior descending artery and large posterolateral branch. Following angioplasty and intracoronary stent placement, the 99%/100% lesion was reduced to 0%. 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 The patient tolerated the procedure and was returned to his room in stable condition. PLAN We will plan to discharge the patient in the next few days. Abdi Duarte MD, CP,MORGAN HEALY/GUY /1:50 PM /11:12 AM CATHY
--- NOTE | 2017-02-07 14:48 | PD.CARD.PN ---
Subjective Subjective Remarks Doing better no chest pain or sob Wound ok s/p stent to RCA Objective Medications Administered Medications Medications (Trade) Dose Ordered Sig/Marlon Route PRN Reason Start Time Stop Time Status Last Admin Dose Admin Heparin Sodium (Porcine) 2500 units 2,500 units UNSCH PRN IV APTT 25 TO 39 02/05/17 17:45 02/06/17 01:12 Heparin Sodium/ Dextrose (Heparin-D5W Inj) 250 ml @ 0 mls/hr TITRATE IV 02/05/17 11:45 02/05/17 12:11 Sodium Chloride (NS Flush) 2 ml BID IV FLUSH 02/05/17 21:00 02/07/17 09:29 Acetaminophen (Tylenol) 650 mg Q4H PRN PO TEMP > 100.4 02/05/17 12:45 02/07/17 04:38 Aspirin (Ecotrin Ec) 81 mg DAILY PO 02/06/17 09:00 02/07/17 09:29 Citalopram Hydrobromide (CeleXA) 20 mg HS PO 02/05/17 21:00 02/06/17 20:28 EZETIMIBE (Zetia) 10 mg HS PO 02/05/17 21:00 02/06/17 20:29 Pantoprazole Sodium (Protonix) 40 mg DAILY PO 02/05/17 13:30 02/07/17 09:29 Nitroglycerin (Nitrostat Sl) 0.4 mg Q5M PRN SL CHEST PAIN 02/05/17 17:15 02/05/17 17:28 Ibuprofen (Motrin) 800 mg Q6H PRN PO DISCOMFORT 02/05/17 18:45 02/05/17 20:51 Amoxicillin (Trimox) 500 mg TID PO 02/06/17 09:00 02/07/17 12:56 Cetirizine HCl (ZyrTEC) 10 mg DAILY PO 02/06/17 09:00 02/07/17 09:29 Lisinopril (Prinivil) 10 mg DAILY PO 02/07/17 09:30 02/07/17 10:22 Vital Signs / I&O Vital Signs Date Time Temp Pulse Resp B/P Pulse Ox O2 Delivery O2 Flow Rate FiO2 02/07/17 14:00 65 02/07/17 13:00 61 02/07/17 12:00 61 02/07/17 11:00 98.8 78 20 135/83 99 02/07/17 11:00 69 02/07/17 10:00 69 02/07/17 09:00 71 02/07/17 08:00 68 02/07/17 07:00 99.2 57 20 153/97 95 02/07/17 07:00 60 02/07/17 05:00 54 02/07/17 04:00 54 02/07/17 03:30 98.3 60 18 139/91 98 02/07/17 03:00 54 02/07/17 02:00 54 02/07/17 01:00 56 02/07/17 00:00 58 02/06/17 23:08 98.0 72 18 126/70 98 02/06/17 23:01 96 21 02/06/17 23:00 66 02/06/17 22:00 66 02/06/17 21:00 70 02/06/17 20:00 68 02/06/17 19:20 98.0 70 18 123/68 99 02/06/17 19:00 70 02/06/17 18:07 66 02/06/17 17:09 62 02/06/17 16:17 75 02/06/17 15:28 98.1 65 18 142/94 97 02/06/17 15:11 65 I/O 02/06/17 02/06/17 02/06/17 02/07/17 02/07/17 02/07/17 07:00 15:00 23:00 07:00 15:00 23:00 Intake Total 1450 ml 720 ml Output Total 550 ml 1400 ml Balance 900 ml -680 ml Intake Oral 950 ml 720 ml IV Total 500 ml Output Urine Total 550 ml 1400 ml Physical Exam GENERAL: Well-nourished, well-developed patient in no apparent distress. SKIN: Warm and dry. NECK: JVD normal - less than or equal to 5 cm H20. CARDIOVASCULAR: Regular rate and rhythm without murmurs, gallops or rubs. RESPIRATORY: Normal breath sounds - equal bilaterally. No accessory muscle use. No wheezes, rales or rubs. PERIPHERY: No cyanosis or edema. Wound ok no hematom Laboratory Laboratory Tests Test 02/06/17 20:15 White Blood Count 9.5 TH/MM3 Red Blood Count 4.86 MIL/MM3 Hemoglobin 14.9 GM/DL Hematocrit 41.7 % Mean Corpuscular Volume 85.8 FL Mean Corpuscular Hemoglobin 30.6 PG Mean Corpuscular Hemoglobin 35.6 % Concent Red Cell Distribution Width 12.7 % Platelet Count 226 TH/MM3 Mean Platelet Volume 8.1 FL Neutrophils (%) (Auto) 63.7 % Lymphocytes (%) (Auto) 24.4 % Monocytes (%) (Auto) 8.4 % Eosinophils (%) (Auto) 2.6 % Basophils (%) (Auto) 0.9 % Neutrophils # (Auto) 6.1 TH/MM3 Lymphocytes # (Auto) 2.3 TH/MM3 Monocytes # (Auto) 0.8 TH/MM3 Eosinophils # (Auto) 0.2 TH/MM3 Basophils # (Auto) 0.1 TH/MM3 CBC Comment DIFF FINAL Differential Comment Prothrombin Time 9.6 SEC Prothromb Time International 0.9 RATIO Ratio Activated Partial 24.9 SEC Thromboplast Time Sodium Level 139 MEQ/L Potassium Level 3.8 MEQ/L Chloride Level 104 MEQ/L Carbon Dioxide Level 25.7 MEQ/L Anion Gap 9 MEQ/L Blood Urea Nitrogen 9 MG/DL Creatinine 0.92 MG/DL Estimat Glomerular Filtration 89 ML/MIN Rate Random Glucose 171 MG/DL Calcium Level 8.2 MG/DL Assessment and Plan Assessment and Plan Doing better on meds wound ok s/p stent not to stop plavix Non compliant pt unable to afford effient etc Smoking cessation Abdi Duarte MD Feb 07, 2017 14:48
[2017-02-07] MEDS: METOPROLOL TARTRATE 25 MG TAB PO SCH ×2 (15:04→20:01)
[2017-02-07] MEDS: ATORVASTATIN 20 MG TAB PO SCH (15:04)
[2017-02-07] MEDS: EZETIMIBE 10 MG TAB PO SCH (20:01)
[2017-02-07] MEDS: CITALOPRAM HYDROBROMIDE 20 MG TAB PO SCH (20:01)
[2017-02-07] MEDS ORDERED: CLOPIDOGREL 75 MG TAB PO SCH (21:00)
[2017-02-08] VITALS (13 sets, daily range): BP systolic 125–149; BP diastolic 67–81; PULSE 50–62; RESP 16–18; TEMP 98–98.5; O2SAT 94–95
[2017-02-08 06:27] LABS: HEMATOCRIT 41.5 % (39.0-51.0); MEAN CELL VOLUME 85.9 FL (80.0-100.0); MEAN CORPUSCULAR HEMOGLOBIN 29.6 PG (27.0-34.0); MEAN CORPUSCULAR HGB CONC 34.4 % (32.0-36.0); PLATELET COUNT 217 TH/MM3 (150-450); RED BLOOD COUNT 4.82 MIL/MM3 (4.50-5.90); RED CELL DISTRIBUTION WIDTH 12.6 % (11.6-17.2); REVIEW FLAG FINAL; WHITE BLOOD COUNT 9.1 TH/MM3 (4.0-11.0)
[2017-02-08 06:54] LABS: HDL CHOLESTEROL 33.2 MG/DL (40.0-60.0)
[2017-02-08] MEDS ORDERED: ATOR20TA15 PO (07:43)
[2017-02-08] MEDS ORDERED: METO25TA3 PO (07:43)
[2017-02-08] MEDS: ASPIRIN EC 81 MG TABEC PO SCH (08:19)
[2017-02-08] MEDS: LISINOPRIL 10 MG TAB PO SCH (08:19)
[2017-02-08] MEDS: PANTOPRAZOLE SOD 40 MG DELAYED RELEASE TAB PO SCH (08:19)
[2017-02-08] MEDS: SODIUM CHLORIDE 0.9% FLUSH 10 ML FLUSH IV FLUSH SCH (08:19)
[2017-02-08] MEDS: ATORVASTATIN 20 MG TAB PO SCH (08:19)
[2017-02-08] MEDS: METOPROLOL TARTRATE 25 MG TAB PO SCH (08:20)
[2017-02-08] MEDS: AMOXICILLIN (TRIHYDRATE) 500 MG CAP PO SCH (08:20)
[2017-02-08] MEDS: CETIRIZINE HCL 10 MG TAB PO SCH (08:20)
--- NOTE | 2017-02-08 10:53 | HHI.PR ---
Subjective Subjective Remarks No chest pain Or shortness of breath No dizziness tired last night but overall feeing okay no acute changes tele reviewed, SB HR 50s states he used to take Lopressor but ran out of prescription and was not taking at home Review of Systems Constitutional Constitutional Remarks 12 point review of systems completed, negative except as noted above Vitals/Results Intake & Output 02/07/17 02/07/17 02/08/17 15:00 23:00 07:00 Intake Total 1080 ml 620 ml Output Total 420 ml Balance 1080 ml 200 ml Intake Oral 1080 ml 620 ml IV Total 0 ml Output Urine Total 420 ml # Voids 5 2 # Bowel Movements 1 0 Vital Signs Vital Signs Date Time Temp Pulse Resp B/P Pulse Ox O2 Delivery O2 Flow Rate FiO2 02/08/17 10:00 50 02/08/17 09:00 50 02/08/17 08:00 56 02/08/17 07:00 52 02/08/17 07:00 98.2 54 16 129/67 95 02/08/17 06:05 54 02/08/17 05:55 52 02/08/17 04:19 54 02/08/17 03:00 98.0 52 18 149/76 94 02/08/17 03:00 51 02/08/17 02:00 59 02/08/17 01:00 60 02/08/17 00:00 62 02/07/17 23:00 98.7 59 20 143/98 93 02/07/17 23:00 65 02/07/17 22:00 60 02/07/17 21:00 62 02/07/17 20:00 62 02/07/17 19:00 98.7 60 20 146/97 96 02/07/17 19:00 60 02/07/17 18:00 62 02/07/17 17:33 95 Nasal Cannula 3.00 02/07/17 17:00 60 02/07/17 16:00 63 02/07/17 15:00 98.6 64 20 133/84 95 02/07/17 15:00 68 02/07/17 14:00 65 02/07/17 13:00 61 02/07/17 12:00 61 02/07/17 11:00 98.8 78 20 135/83 99 02/07/17 11:00 69 CBC/BMP: 02/08/17 0504 02/06/172014 Lab Results Laboratory Tests Test 02/07/17 02/08/17 15:22 05:04 Troponin I 1.79 NG/ML White Blood Count 9.1 TH/MM3 Red Blood Count 4.82 MIL/MM3 Hemoglobin 14.3 GM/DL Hematocrit 41.5 % Mean Corpuscular Volume 85.9 FL Mean Corpuscular Hemoglobin 29.6 PG Mean Corpuscular Hemoglobin 34.4 % Concent Red Cell Distribution Width 12.6 % Platelet Count 217 TH/MM3 Mean Platelet Volume 8.5 FL Cholesterol Level 222 MG/DL LDL Cholesterol Direct 148 MG/DL HDL Cholesterol 33.2 MG/DL Cholesterol/HDL Ratio 6.68 RATIO Physical Exam General General Appearance: Well Developed, Well Nourished, No Acute Distress, Comfortable Eyes Eye Exam: Pupils Equal, Pupils Reactive Ears & Nose Ears & Nose Exam: Nasal Mucosa [place] Throat Throat Exam: Oral Mucosa [place] & Moist Neck Neck Exam: Neck Supple, Trachea Midline Pulmonary Resp Exam: Clear Bilaterally, No Distress Cardiology CV Exam: Good Perfusion, Bradycardia Gastrointestinal/Abdomen GI Exam: Soft, Non-Tender, Bowel Sounds Present, Non-Distended Musculoskeletal MS Exam: Joints Intact Integumentary Skin Exam: Warm, Dry Extremeties Extremities Exam: No Edema, Pedal Pulses Palpable Neurologic Neuro Exam: Alert, Awake, Oriented, Speech Clear, Moving All Extremities, No Focal Deficits Psychiatric Psych Exam: Appropriate Responses VTE Prophylaxis VTE Prophylaxis Device: SCDs Assessment/Plan Problem List: (1) Non-ST elevation [place] (NSTEMI) (2) Vertigo (3) Chest pain (4) CAD (coronary artery disease) (5) Hyperlipidemia (6) HTN (hypertension) (7) Hx of myocardial infarction (8) Tobacco abuse Assessment/Plan 46-year-old male with past medical history CAD, hypertension, prior [place]. Presented to the emergency room with chest pain and syncopal symptoms. Found positive for non-STEMI 02/06-Status post cardiac catheterization-found with 99% occlusion to RCA status post stent. Was defibrillated during procedure -Resume Plavix Continue with aspirin -Started on Lopressor 25 mg PO BID -c/o being tired last night, HR 50s. ? may consider decreasing to daily, defer to cardiology -Continue statin, Lipitor added -Lipid profile results noted, LDL 148, HDL 33.2 -repeat trop coming down 1.79 -will wait for card to clear Recent dental workup, on antibiotics Continue with amoxicillin Tobacco abuse Tobacco abuse counseling, patient agreeable with stopping this time Hypertension Continue home medications Hyperlipidemia -Continue with home medications Vertigo, resolved -Continue to monitor overall improved, will wait for cardiology to clear discussed need for compliance with meds poss. dc today D/W RN D/W Dr. Baumann D/W pt This patient was seen by myself and Dr. Baumann, this note is written on his behalf Problem Qualifiers (1) Chest pain: Qualified Code: I20.9 - Chest pain due to myocardial ischemia, unspecified ischemic chest pain type (2) CAD (coronary artery disease): Qualified Code: I25.118 - Coronary artery disease of [place] artery of [place] heart with stable angina pectoris (3) Hyperlipidemia: Qualified Code: E78.5 - Hyperlipidemia, unspecified hyperlipidemia type (4) HTN (hypertension): Qualified Code: I10 - Essential hypertension Angela Hernandez Feb 08, 2017 10:53
[2017-02-08] MEDS: SODIUM CHLOR 0.9% 1000 ML INJ 1,000 ML IV SCH (11:27)
--- NOTE | 2017-02-08 11:57 | PD.CARD.PN ---
Subjective Subjective Remarks Feels better wound ok Objective Medications Administered Medications Medications (Trade) Dose Ordered Sig/Marlon Route PRN Reason Start Time Stop Time Status Last Admin Dose Admin Heparin Sodium (Porcine) 2500 units 2,500 units UNSCH PRN IV APTT 25 TO 39 02/05/17 17:45 02/06/17 01:12 Heparin Sodium/ Dextrose (Heparin-D5W Inj) 250 ml @ 0 mls/hr TITRATE IV 02/05/17 11:45 02/05/17 12:11 Sodium Chloride (NS Flush) 2 ml BID IV FLUSH 02/05/17 21:00 02/08/17 08:19 Acetaminophen (Tylenol) 650 mg Q4H PRN PO TEMP > 100.4 02/05/17 12:45 02/07/17 04:38 Aspirin (Ecotrin Ec) 81 mg DAILY PO 02/06/17 09:00 02/08/17 08:19 Citalopram Hydrobromide (CeleXA) 20 mg HS PO 02/05/17 21:00 02/07/17 20:01 EZETIMIBE (Zetia) 10 mg HS PO 02/05/17 21:00 02/07/17 20:01 Pantoprazole Sodium (Protonix) 40 mg DAILY PO 02/05/17 13:30 02/08/17 08:19 Nitroglycerin (Nitrostat Sl) 0.4 mg Q5M PRN SL CHEST PAIN 02/05/17 17:15 02/05/17 17:28 Ibuprofen (Motrin) 800 mg Q6H PRN PO DISCOMFORT 02/05/17 18:45 02/05/17 20:51 Amoxicillin (Trimox) 500 mg TID PO 02/06/17 09:00 02/08/17 08:20 Cetirizine HCl (ZyrTEC) 10 mg DAILY PO 02/06/17 09:00 02/08/17 08:20 Clopidogrel Bisulfate (Plavix) 75 mg HS PO 02/07/17 21:00 02/07/17 20:01 Lisinopril (Prinivil) 10 mg DAILY PO 02/07/17 09:30 02/08/17 08:19 Metoprolol Tartrate (Lopressor) 25 mg Q12HR PO 02/07/17 14:45 02/08/17 08:20 Atorvastatin Calcium (Lipitor) 20 mg DAILY PO 02/07/17 14:45 02/08/17 08:19 Vital Signs / I&O Vital Signs Date Time Temp Pulse Resp B/P Pulse Ox O2 Delivery O2 Flow Rate FiO2 02/08/17 11:00 56 02/08/17 11:00 98.5 54 18 125/81 94 02/08/17 10:00 50 02/08/17 09:00 50 02/08/17 08:00 56 02/08/17 07:00 52 02/08/17 07:00 98.2 54 16 129/67 95 02/08/17 06:05 54 02/08/17 05:55 52 02/08/17 04:19 54 02/08/17 03:00 98.0 52 18 149/76 94 02/08/17 03:00 51 02/08/17 02:00 59 02/08/17 01:00 60 02/08/17 00:00 62 02/07/17 23:00 98.7 59 20 143/98 93 02/07/17 23:00 65 02/07/17 22:00 60 02/07/17 21:00 62 02/07/17 20:00 62 02/07/17 19:00 98.7 60 20 146/97 96 02/07/17 19:00 60 02/07/17 18:00 62 02/07/17 17:33 95 Nasal Cannula 3.00 02/07/17 17:00 60 02/07/17 16:00 63 02/07/17 15:00 98.6 64 20 133/84 95 02/07/17 15:00 68 02/07/17 14:00 65 02/07/17 13:00 61 02/07/17 12:00 61 I/O 02/07/17 02/07/17 02/07/17 02/08/17 02/08/17 02/08/17 07:00 15:00 23:00 07:00 15:00 23:00 Intake Total 720 ml 1080 ml 620 ml Output Total 1400 ml 420 ml Balance -680 ml 1080 ml 200 ml Intake Oral 720 ml 1080 ml 620 ml IV Total 0 ml Output Urine Total 1400 ml 420 ml # Voids 5 2 # Bowel Movements 1 0 Physical Exam GENERAL: Well-nourished, well-developed patient in no apparent distress. SKIN: Warm and dry. NECK: JVD normal - less than or equal to 5 cm H20. CARDIOVASCULAR: Regular rate and rhythm without murmurs, gallops or rubs. RESPIRATORY: Normal breath sounds - equal bilaterally. No accessory muscle use. No wheezes, rales or rubs. PERIPHERY: No cyanosis or edema no hematoma Laboratory Laboratory Tests Test 02/07/17 02/08/17 15:22 05:04 Troponin I 1.79 NG/ML White Blood Count 9.1 TH/MM3 Red Blood Count 4.82 MIL/MM3 Hemoglobin 14.3 GM/DL Hematocrit 41.5 % Mean Corpuscular Volume 85.9 FL Mean Corpuscular Hemoglobin 29.6 PG Mean Corpuscular Hemoglobin 34.4 % Concent Red Cell Distribution Width 12.6 % Platelet Count 217 TH/MM3 Mean Platelet Volume 8.5 FL Cholesterol Level 222 MG/DL LDL Cholesterol Direct 148 MG/DL HDL Cholesterol 33.2 MG/DL Cholesterol/HDL Ratio 6.68 RATIO Assessment and Plan Assessment and Plan Doing better on meds wound ok Long discussion re Plavix and cohlesterol control givne increased LFTs Follow p with Dr Tovar in one week. Abdi Duarte MD Feb 08, 2017 11:56
--- NOTE | 2017-02-08 19:27 | HHI.DS ---
Discharge Summary Admission Date Feb 05, 2017 at 12:24 Discharge Date: Feb 08, 2017 Admitting Diagnosis NSTEMI (1) Non-ST elevation VA (NSTEMI) (2) Chest pain (3) CAD (coronary artery disease) (4) Hyperlipidemia (5) Tobacco abuse (6) Vertigo (7) HTN (hypertension) (8) Hx of myocardial infarction Procedures 02/06-Status post cardiac catheterization-found with 99% occlusion to RCA status post stent. Was defibrillated during procedure CBC/BMP: 02/08/17 0504 02/06/172014 Significant Findings Laboratory Tests Test 02/06/17 02/06/17 02/06/17 02/07/17 00:30 06:34 20:15 15:22 Activated Partial 31.0 SEC 35.6 SEC Thromboplast Time (24.3-30.1) (24.3-30.1) Monocytes (%) (Auto) 8.2 % (0.0-8.0) 8.4 % (0.0-8.0) Random Glucose 147 MG/DL 171 MG/DL (74-106) (74-106) Prothrombin Time 9.6 SEC (9.8-11.6) Calcium Level 8.2 MG/DL (8.5-10.1) Troponin I 1.79 NG/ML (0.02-0.05) Test 02/08/17 05:04 Cholesterol Level 222 MG/DL (120-200) LDL Cholesterol Direct 148 MG/DL (0-99) HDL Cholesterol 33.2 MG/DL (40.0-60.0) Imaging Last Impressions Chest X-Ray 02/05/17 1020 Signed Impressions: Service Date/Time: Sunday, February 05, 2017 10:46 - CONCLUSION: Normal examination. Sujit Aguiar MD Hospital Course Mr. Christopher is a 46-year-old male with atherosclerotic heart disease status post stenting in the L[place] by Dr. Byrd in the past. He presented with a non-ST segment elevation VA at that time. He presented to the emergency room yesterday with a several-day history five or six days of burping and substernal chest pressure. He says it was the same type of discomfort he had prior to his myocardial infarction. Electrocardiogram showed nonspecific findings and his troponin was elevated. He was given nitroglycerin with relief of the discomfort. Laboratory workup was completed in the emergency room, he was found positive for non-STEMI. Patient was admitted for: (1) Non-ST elevation VA (NSTEMI) (2) Vertigo (3) Chest pain (4) CAD (coronary artery disease) (5) Hyperlipidemia (6) HTN (hypertension) (7) Hx of myocardial infarction (8) Tobacco abuse During the course of the hospitalization, the following took place: 46-year-old male with past medical history CAD, hypertension, prior VA. Presented to the emergency room with chest pain and syncopal symptoms. Found positive for non-STEMI 02/06-Status post cardiac catheterization-found with 99% occlusion to RCA status post stent. Was defibrillated during procedure -Cardiology was consulted, cardiac catheter was recommended. -Resumed Plavix post-catheterization, was informed that he could not stop taking it. Continued with aspirin -Started on Lopressor 25 mg PO BID. patient indicated he had taken it before however he had run out of his prescription. Discussed medication compliance -Continued on Zetia, Lipitor added -Lipid profile results noted, LDL 148, HDL 33.2 -repeat trop coming down 1.79 -Patient improved, no more chest pain. -Cardiology cleared for discharge, discussed with patient in detail the need for compliance. Recent dental workup, on antibiotics Continued with amoxicillin -Remained stable, no fever. Tobacco abuse Tobacco abuse counseling, patient agreeable with stopping this time Hypertension Continued home medications Hyperlipidemia -Continue with home medications -Lipid profile ordered, Lipitor added. Vertigo, resolved -Continued to monitor overall improved, no more chest pain discussed need for compliance with meds Discharge home in stable condition Instructed to follow up with Dr. Alonzo in 1 week Pt Condition on Discharge: Stable Discharge Disposition: Discharge Home Discharge Instructions DIET: Follow Instructions for: Heart Healthy Diet Activities you can perform: Weight Bearing as Gela Follow up Referrals: Cardiology - 1 Week with Pankaj Alonzo MD PCP Follow-up New Medications: Nitroglycerin SL (Nitroglycerin SL) 0.4 Mg Subl 0.4 MG SL DIRECTED ONE TABLET UNDER THE TONGUE NEEDED FOR CHEST PAIN, MAY REPEAT EVERY FIVE MINUTES FOR A TOTAL OF 3 DOSES OR CALL 911 IF NO RELIEF PRN CHEST PAIN #100 Ref 0 TAB.SL Atorvastatin (Atorvastatin) 20 Mg Tab 20 MG PO DAILY hyperlipidemia #30 Ref 1 TAB Metoprolol Tartrate (Metoprolol Tartrate) 25 Mg Tab 25 MG PO Q12HR Blood Pressure Management #60 Ref 1 TAB Continued Medications: Alprazolam (Alprazolam) 0.5 Mg Tab 0.5 MG PO BID PRN ANXIETY Days 30 Ref 0 TAB Amoxicillin (Amoxicillin) 500 Mg Cap 500 MG PO TID Infection Days 10 Ref 0 CAP Aspirin (Aspirin) 81 Mg Tabdr 81 MG PO DAILY TAB Cetirizine (Cetirizine) 10 Mg Tab 10 MG PO DAILY Allergies Days 30 Ref 0 TAB Citalopram (Citalopram) 20 Mg Tab 20 MG PO HS Control Depression #30 Ref 0 TAB Clopidogrel (Plavix) 75 Mg Tab 75 MG PO HS Blood Clot Prevention #30 Ref 0 TAB Ezetimibe (Zetia) 10 Mg Tab 10 MG PO HS #30 Ref 0 TAB Lisinopril (Lisinopril) 10 Mg Tab 10 MG PO DAILY #30 Ref 0 TAB Angela Hernandez Feb 08, 2017 19:27
== END 2017-02-08 12:51 | disposition home or self-care (01) | DRG 246 ==
LOC: NEPC 10:03 → NEDA 12:24 → NEPHCDU 14:31 → HCIS 02-06 13:41
PROVIDERS: ADMIT Internal Medicine; ATTEND Internal Medicine
PROC: 4A023N7 Measurement of Cardiac Sampling and Pressure, Left Heart, Percutaneous Approach (ICD-10-PCS; 2017-02-06)
PROC: B2111ZZ Fluoroscopy of Multiple Coronary Arteries using Low Osmolar Contrast (ICD-10-PCS; 2017-02-06)
PROC: B2151ZZ Fluoroscopy of Left Heart using Low Osmolar Contrast (ICD-10-PCS; 2017-02-06)
PROC: 5A2204Z Restoration of Cardiac Rhythm, Single (ICD-10-PCS; 2017-02-06)
PROC: 027034Z Dilation of Coronary Artery, One Artery with Drug-eluting Intraluminal Device, Percutaneous Approach (ICD-10-PCS; principal; 2017-02-06 12:30)
DX: I21.4 Non-ST elevation (NSTEMI) myocardial infarction (principal); I49.01 Ventricular fibrillation; T82.858A Stenosis of other vascular prosthetic devices, implants and grafts, initial encounter; I10 Essential (primary) hypertension; E78.5 Hyperlipidemia, unspecified; I25.118 Atherosclerotic heart disease of native coronary artery with other forms of angina pectoris; I25.2 Old myocardial infarction; E78.00 Pure hypercholesterolemia, unspecified; F41.9 Anxiety disorder, unspecified; K21.9 Gastro-esophageal reflux disease without esophagitis; F17.210 Nicotine dependence, cigarettes, uncomplicated; Y71.1 Therapeutic (nonsurgical) and rehabilitative cardiovascular devices associated with adverse incidents; Y92.9 Unspecified place or not applicable; Y83.8 Other surgical procedures as the cause of abnormal reaction of the patient, or of later complication, without mention of misadventure at the time of the procedure; R42 Dizziness and giddiness
CPT/HCPCS: 71010; 80048; 80053; 82465; 83690; 83718; 83721; 83735; 84484; 85002; 85025; 85027; 85610; 85730; 92928; 93005; 93454; 96374; 96375; C1725; C1760; C1769; C1874; C1887; C1893; G0269; J0461; J1265; J1644; J2001; J2250; J3010; Q9967

== ENCOUNTER 2017-08-28 18:01 | Emergency (ER) | payer OTHER ==
[~2017-08-28] VITALS: Ht 172.7 cm; Wt 90.5 kg
[~2017-08-28 18:01] MED LIST changes: +ALPR0.5T3 PO; +AMOX500C PO; +ASPI1TAB69 PO; +ATOR20TA15 PO; +CETI10 PO; +CITA20TA4 PO; +EZET10 PO; +LISI10TA3 PO; -MECL-62 PO; +METO25TA3 PO; +NITR1SUB3 SL; +PLAV75TA29 PO; -ZOFR4TAB3 SL
[2017-08-28 18:02] VITALS: BP 162/103; PULSE 86; RESP 18; TEMP 99.3; O2SAT 96
[2017-08-28] MEDS ORDERED: HYDR-3533 PO (18:29)
[2017-08-28] MEDS ORDERED: SILV1CRE20 TOPICAL (18:29)
[2017-08-28] MEDS ORDERED: TETANUS/DIPHTHERIA TOXOID ADULT 0.5 ML VIAL IM ONE (18:30)
[2017-08-28] MEDS ORDERED: SILVER SULFADIAZINE 1% CR 50 GM JAR TOPICAL ONE (18:30)
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
[2017-08-28] MEDS ORDERED: ASPI-516 CHEW (18:40)
[2017-08-28] MEDS ORDERED: OMEP20TA93 PO (18:40)
[2017-08-28] MEDS ORDERED: PRAV20TA2 PO (18:40)
[2017-09-06] MEDS ORDERED: LIDO2GEL11 TOPICAL (11:34)
[2017-09-06] MEDS ORDERED: SSD1CRE TOPICAL (11:35)
[2017-09-09] MEDS ORDERED: SULF1TAB23 PO (12:13)
== END 2017-08-28 19:27 | disposition home or self-care (01) ==
LOC: NEPK 18:01
DX: T25.221A Burn of second degree of right foot, initial encounter (principal); F41.9 Anxiety disorder, unspecified; I10 Essential (primary) hypertension; I25.10 Atherosclerotic heart disease of native coronary artery without angina pectoris; E78.00 Pure hypercholesterolemia, unspecified; E11.9 Type 2 diabetes mellitus without complications; K21.9 Gastro-esophageal reflux disease without esophagitis; I25.2 Old myocardial infarction; Z23 Encounter for immunization
CPT/HCPCS: 16020; 90471; 90714

== ENCOUNTER 2017-09-05 13:37 | Emergency (ER) | payer OTHER ==
[~2017-09-05 13:37] MED LIST changes: -AMOX500C PO; +ASPI-516 CHEW; -ASPI1TAB69 PO; -ATOR20TA15 PO; +HYDR-3533 PO; +OMEP20TA93 PO; +PRAV20TA2 PO; +SILV1CRE20 TOPICAL
[2017-09-05 13:39] VITALS: BP 151/87; PULSE 74; RESP 16; TEMP 98.6; O2SAT 98
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
[2017-09-06] MEDS ORDERED: LIDO2GEL11 TOPICAL (11:34)
[2017-09-06] MEDS ORDERED: SSD1CRE TOPICAL (11:35)
[2017-09-09] MEDS ORDERED: SULF1TAB23 PO (12:13)
== END 2017-09-05 14:28 | disposition left against medical advice (07) ==
LOC: NED 13:37
DX: T25.029A Burn of unspecified degree of unspecified foot, initial encounter (principal); Z53.21 Procedure and treatment not carried out due to patient leaving prior to being seen by health care provider
CPT/HCPCS: 99281